=== PATIENT | female | born 1995 | race African-American/Black ===

== ENCOUNTER 2016-10-14 18:55 | Emergency (ER) | payer OTHER ==
[~2016-10-14] VITALS: Ht 170.2 cm; Wt 68.2 kg
[~2016-10-14 18:55] MED LIST: AMOXICILLIN PO; AMOXICILLIN875 MG PO; BACTRIM DS TABL1 TA1 PO; CIPRO250 M1 PO; ERYTHROMYCIN O3.5 GM; FLEXERIL10 MG PO; FLONASE16 GM; HYDROCODON-ACE1 EAC7 PO; IBUPROFEN PO; IBUPROFEN100 MG PO; IBUPROFEN800 MG PO; MOTRIN600 M1 PO; NO MEDICATIONS; PROTONIX PO; PYRIDIUM PO; VIBRAMYCIN100 M1 PO; ZITHROMAX1 G/PKT PO; ZOFRAN ODT4 MG PO; ZYRTEC-D T1 TAB.SR . PO
[2016-10-14 19:43] LABS: URINE SOURCE CLEAN CATCH
[2016-10-14 19:54] LABS: URINE APPEARANCE CLEAR; URINE BILIRUBIN NEG (NEG); URINE COLOR YELLOW; URINE GLUCOSE NEG (NEG); URINE KETONE NEG (NEG); URINE LEUKOCYTE ESTERASE 2+ (NEG); URINE NITRATE NEG (NEG); URINE PH 7.5 (5-8); URINE PROTEIN 3+ (NEG); URINE SPECIFIC GRAVITY 1.024 (1.003-1.035)
[2016-10-14 19:57] LABS: CULTURE INDICATED? YES; URINE BACTERIA AUWI 3+ (NEGATIVE); URINE SQUAMOUS EPITHELIAL CELL FEW /[HPF]; UWBCS1 AUWI INNUM (0-5)
[2016-10-14 20:09] LABS: URINE BLOOD 2+ (NEG)
== END 2016-10-14 20:20 | disposition home or self-care (01) ==
LOC: CFTX 18:55 → CED 18:55 → CFTX 20:13
PROVIDERS: Physician Assistant
DX: N30.01 Acute cystitis with hematuria (principal); F17.210 Nicotine dependence, cigarettes, uncomplicated
CPT/HCPCS: 81003; 84703; 87086; 87088; 87186; 99283